=== PATIENT | male | born 1955 | race Caucasian/White ===

== ENCOUNTER → 2021-03-30 10:50 | Outpatient (BNVA) | payer OTHER, SELFPAY | PROVIDERS: Visit Provider Internal Medicine Critical Care Medicine | DX: Z01.812 Encounter for preprocedural laboratory examination (principal); Z20.822 Contact with and (suspected) exposure to COVID-19 | CPT/HCPCS: 87635 ==

== ENCOUNTER 2021-04-05 09:29 | Outpatient (CLI) | payer OTHER, MEDICARE, SELFPAY ==
--- NOTE | 2021-04-05 10:12 | PFTS_ITS ---
Date of Study:04/05/21 Date of Dictation: MECHANICS: Forced vital capacity (FVC) is normal. Forced expiratory volume in one second (FEV1) is reduced. FEV1/FVC is reduced. FLOW VOLUME LOOP: Reduced flow at all lung volumes with significant scooping. LUNG VOLUMES: Total lung capacity (TLC) is increased. Residual volume (RV) is increased. DIFFUSING CAPACITY FOR CARBON MONOXIDE: Moderately reduced. INTERPRETATION: The postbronchodilator spirometry is consistent with severe obstruction. There is a significant postbronchodilator response. Lung volumes are consistent with hyperinflation and air trapping. Gas exchange (DLCO) is moderately reduced. MTDD
--- NOTE | 2021-04-05 13:19 | PFTS_ITS ---
Date of Study:04/05/21 Date of Dictation: MECHANICS: Forced vital capacity (FVC) is . Forced expiratory volume in one second (FEV1) is . FEV1/FVC is . FLOW VOLUME LOOP: . LUNG VOLUMES: Total lung capacity (TLC) is . Residual volume (RV) is . DIFFUSING CAPACITY FOR CARBON MONOXIDE: . INTERPRETATION: The pulmonary function tests are . mechanics and lung volumes. Gas exchange (DLCO) is . MTDD
== END 2021-04-05 09:30 | disposition home or self-care (01) ==
LOC: RT 09:33
PROVIDERS: PCP Nurse Practitioner; Visit Provider Internal Medicine Critical Care Medicine
DX: J44.9 Chronic obstructive pulmonary disease, unspecified (principal)
CPT/HCPCS: 94060; 94726; 94729; J7611

== ENCOUNTER → 2021-07-20 08:04 | Outpatient (BNVA) | payer OTHER, SELFPAY | PROVIDERS: PCP Nurse Practitioner; Visit Provider Internal Medicine | DX: Z01.818 Encounter for other preprocedural examination (principal); Z20.822 Contact with and (suspected) exposure to COVID-19; J44.9 Chronic obstructive pulmonary disease, unspecified | CPT/HCPCS: 80048; 85025; 85610; 87635 ==

== ENCOUNTER 2021-07-26 12:28 | Observation (INO) | payer OTHER, SELFPAY ==
[2021-07-26] VITALS (17 sets, daily range): BP systolic 90–156; BP diastolic 45–88; PULSE 63–91; RESP 16–29; TEMP 37; O2SAT 93–96; BMI 31.7
--- NOTE | 2021-07-26 09:00 | XACV_ITS ---
Wt: 98 kg BSA: 2.21 m2 Gender: Male : 1955 Exam Type: Invasive Peripheral Vascular Procedure(s): Procedure Description: Peripheral Cath Diagnostic Procedure Procedure Description: Peripheral iliac stent placement Exam Priority: Routine Lower Extremity Diagnostic Findings Left common iliac artery: 100% occluded ostially Left external iliac artery: Patent Left internal iliac artery: Patent proximally, provides collaterals Left common femoral artery: Patent Left profunda femoral artery: Patent Left SFA: Patent Left popliteal artery: Patent TP segment patent Below the knee there is sluggish flow in the vessels but no stenosis noted. Right common iliac artery: Ostially occluded, Occluded common femoral and external iliac arteries. Blood supply through collaterals. However right lower extermity arteries not visualized. Lower Extremity Interventional Findings Procedure detail: Bilateral common femoral arteries were not palpable. We used ultrasound to guide access for left common femoral artery. 6 Kazakh sheath was inserted. Angiogram showed totally occluded ostial to distal common iliac artery. Access was also obtained in the right common femoral artery with ultrasound guidance however it was totally occluded and sheath was not advanced. We then attempted to revascularize left common femoral artery. Using seeker support catheter and Glidewire, we crossed the totally occluded segment of the left common iliac artery. This was followed by balloon angioplasty using 6.0 x 100 mm balloon. We then placed a 7.0 x 59 mm balloon expandable stent in the common iliac artery. A second 7.0 x 29 mm stent was placed in the distal common iliac to external iliac artery. Stents were expanded with 7.0 x 80 mm balloon. At this time final angiogram was performed that showed excellent stent expansion and no residual stenosis in the common iliac artery. Sheath was sutured in place for removal later.. Conclusions Totally occluded bilateral common iliac arteries. Right side has more extensive disease extending into femoral arteries. Bilateral lower extremities supplied by collateral blood flow. Successful revascularization of left common iliac artery with stents x2. Recommendations Transferred to [facility]. Aspirin and Plavix for 3 to 6 months. Outpatient abdominal CTA with runoff to assess right lower extremity vasculature for potential access for revascularization of iliac arteries/femoral arteries. Outpatient cardiology follow-up in 1 to 2 weeks. Access Site Site: Left Femoral artery Sheath Size: 6 Fr Hemost... Method: Suture Hemost... Success: Successful Procedure Details Findings Procedure Consent Obtained. Admit Source: Out Patient. Pre-Procedure Time Out. Identified patient by full name and date of as verbalized by the patient/guarantor. Does the consent match the physician's order: Yes. Accurate & Complete Informed Consent: Yes. Inpatient/Outpatient History & Physical on Chart: Yes. If H&P is completed, is and addenduem needed: Yes; If yes, is the addendum complete: N/A. Visualize and Verify Site with Patient/Guarantor: N/A. Relevant Radiology Images available: N/A. Pre-op teaching completed and patient verbalized understanding. The risks, benefits, and alternatives of sedation and/or procedure were discussed by physician. The patient agrees to continue. Procedure started. Correct patient, site and procedure confirmed by cath team. PERRLA. Strong, equal hand medical technicians bilaterally. Lungs clear x 5 lobes. IV Site on Arrival: 20 gauge in the right anticubital. Pre Procedural Pulses: bilateral dorsalis pedis was Doppled. Pre Procedural Pulses: bilateral posterior tibial was Doppled. Pre Procedural Pulses: bilateral radial was 3+. Oxygen started at 2liters/min via nasal canula. bilateral groins was prepped with chloroprep then draped in the usual sterile fashion. Physician notified. Baseline sample Acquired. HR: 93 BPM. Physician arrived. Physician scrubbed in. Lidocaine 1% infiltrated to the left groin. Arterial access obtained with micropuncture set. hand injection performed through the sheath. left leg runoff performed 10mL/sec for a total of 30mL. Side port of sheath attached to Normal Saline flush at KVO to maintain patency. Lidocaine 1% infiltrated to the right groin. Arterial access obtained with micropuncture set. microdialator inserted. handinjection performed through the microdialator. microdialator out. holding manual pressure at this time. Dr. Chin noified per Dr. Sabillon. no hematoma noted on right femoral sight. Dr. Chin scrubbing in for Dr. Sabillon. handinjection performed through the sheath. seeker and glidewire inserted. glidewire out. handinjection performed through the seeker. seeker and glidewire advaced to the aorta. handinjection performed. seeker is out. glidewire inserted. Inflation number : 1 A AB ARMADA 35 OTW [id number] was prepped and advanced across the Common Iliac, Left , then inflated to 10 MARCO A for 2:04 seconds. Balloon out. A 6FrFr UF catheter in over wire. handinjection performed. Side port of sheath attached to Normal Saline flush at KVO to maintain patency. Abdominal aortogram performed in AP @ 10 mL/sec for a total of 30 mL. glidewire inserted. Catheter out. Inflation Number : 1 A Omnilink -Lot Number#[id number] exp date: 11-11-2023 was prepped and advanced across the Ostial Common Iliac, Left. The stent was deployed at 10 MARCO A for 1:08 seconds. Inflation Number : 1 A Omnilink Elite 7.0x29mm -Lot Number#[id number] exp date: 12-12-2023 was prepped and advanced across the Ostial Internal Iliac, Left. The stent was deployed at 10 MARCO A for 1:00 seconds. Balloon out. Abdominal aortogram performed in AP @ 10 mL/sec for a total of 20 mL. A 6FrFr UF catheter in over wire. glidewire inserted. Inflation number : 2 A AB ARMADA 35 OTW [id number] was prepped and advanced across the Common Iliac, Left , then inflated to 10 MARCO A for 1:03 seconds. Balloon out. pigtail inserted. handinjection performed through the pigtail 10mL/sec for a total of 20mL. Catheter out. Sheath(s) sutured into position with 2-0 silk and sterile 4x4's and Op-site applied over the site. No oozing or signs and symptoms of hematoma noted. Post Procedure: Pulses reassessed and unchanged. PERRLA. Strong, equal hand medical technicians bilaterally. No VTE prophylaxis required. Post-op diagnosis: total occluded left common iliac\. PCI Indication: severe lifestyle clotification. Medication's Wasted: Heparin = 2000 units. Medication's Wasted: Other = versed 1 mg. Total IV fluids: 124 mL. Contrast type used: Visipaque 320 mgI/mL, 500 mL bottle. Contrast Material : Visipaque 171 ml. Complications: none. Estimated blood loss: 5mL-10mL. A Suture was successful obtaining hemostatsis at the Left Femoral artery insertion site. Responsiveness - Normal response to verbal stimuli; alert and oriented, PERRLA. Airway - Unaffected, no intervention required; spontaneous ventilation. Circulation: W/N/L, pulses unchanged. Nausea/Vomiting: N/A. Procedure completed. Patient transferred by bed to 1st floor. Vital chart was stopped. Procedure Medications Start: 10:33 AM Stop: 10:33 AM Medication: Versed Amount: 1 mg Route: I.V. Start: 10:33 AM Stop: 10:33 AM Medication: Fentanyl Amount: 50 mcg Route: I.V. Start: 11:15 AM Stop: 11:15 AM Medication: Versed Amount: 1 mg Route: I.V. Start: 11:15 AM Stop: 11:15 AM Medication: Fentanyl Amount: 25 mcg Route: I.V. Start: 11:32 AM Stop: 11:32 AM Medication: Versed Amount: 1 mg Route: I.V. Start: 11:48 AM Stop: 11:48 AM Medication: Versed Amount: 1 mg Route: I.V. Start: 11:49 AM Stop: 11:49 AM Medication: Fentanyl Amount: 25 mcg Route: I.V. Start: 12:13 PM Stop: 12:13 PM Medication: Aspirin Amount: 325 mg Route: P.O. Start: 12:13 PM Stop: 12:13 PM Medication: Plavix Amount: 600 mg Route: P.O. I, the attending physician, have reviewed and verified all procedure medications. Yes, all medications given per verbal order History/Risk Factors Hypertension: Yes Dyslipidemia: Yes Tobacco Use: Current/Recent(w/in 1 year) Report Signatures Finalized by Jose Armando Sabillon MD on 07/26/2021 05:20 PM
[2021-07-26] MEDS: diphenhydrAMINE 50 mg Capsule PO (09:54)
--- NOTE | 2021-07-26 10:26 | W.PM.OPSFHP ---
Same Day Surgery H&P Indication for Procedure/HPI DATE OF PROCEDURE: July 26, 2021 CHIEF COMPLAINT/INDICATIONFOR SURGICAL PROCEDURE: Lifestyle limiting claudication PREOP DIAGNOSIS: Lifestyle limiting claudication PLANNED PROCEDRUE: Operation Date: 07/26/21 10:00 Proposed Procedures p Peripheral Diagnostic(Bilateral) - Jose Armando Sabillon M.D Peripheral intervention 65 year old with PMH of hypertension, hyperlipidemia, BENJA and tobacco abuse has been having significant bilateral lower extremity discomfort, mostly at exertion but also occasionally at rest. LISA were performed that showed a value of 0.51 on the right and 0.58 on the left. It limits his every day activiites. Plan is for peripheral angiogram from left femoral access site. ROS CONSTITUTIONAL: No fever chills weight loss or gain or night sweats. [] HEENT: Normocephalic, atraumatic.[] RESPIRATORY: No cough, sputum, hemoptysis or wheezing.[] CARDIOVASCULAR: No shortness of breath, chest pain, PND, orthopnea, lower extremity edema, presyncope or syncope. [] GI: no nausea vomiting diarrhea. [] EDUCATIONAL MANAGER: No numbness, tingling, weakness or loss of function in any part of the body. [] MUSCULOSKELETAL: Has bilateral lower extremity claudication Medications/Allergies* Home Medications Medication Instructions Recorded Confirmed Type albuterol sulfate 90 mcg/actuation 2 puff INHALATION Q6H PRN 01/11/21 07/26/21 History aerosol inhaler amlodipine 10 mg tablet 10 mg PO DAILY 01/11/21 07/26/21 History vitamin B complex 1 tab PO DAILY 05/04/21 07/25/21 History ascorbic acid (vitamin C) [Vitamin 1,000 mg PO DAILY 07/25/21 07/25/21 History C] garlic 1,000 mg PO DAILY 07/25/21 07/25/21 History glucosamine-chondroitin [Osteo 2 tab PO DAILY 07/25/21 07/26/21 History Bi-Flex] magnesium 100 mg PO DAILY 07/25/21 07/25/21 History omega-3 fatty acids-vitamin E 1,000 cap PO DAILY 07/25/21 07/25/21 History [Fish Oil] zinc 30 mg PO DAILY 07/25/21 07/25/21 History Allergies/Adverse Reactions Allergy/AdvReac Type Severity Reaction Status Date / Time No Known Allergies Allergy Verified 07/25/21 12:44 Current Medications: Generic Name Dose Route Start Last Admin Trade Name Festus PRN Reason Stop Dose Admin Sodium Chloride 1,000 mls @ 50 mls/hr 07/26/21 09:00 07/26/21 09:54 Sodium Chloride 0.9% IV 07/27/21 04:59 Not Given .Q20H ONE Pertinent History/Comorbid Conditions* Medical History (Updated 06/22/21 @ 19:56 by Jose Armando Sabillon M.D) Chronic obstructive pulmonary disease GERD (gastroesophageal reflux disease) HTN (hypertension) Hyperlipidemia BENJA (obstructive sleep apnea) Tobacco use Unspecified hearing loss Surgical History (Updated 02/02/21 @ 10:57 by Skye Aponte MD) H/O vasectomy History of hip surgery Social History Smoking and tobacco status: current every day smoker cigarettes Packs smoked per day: 1 Years cigarettes smoked: 50 Quit status (tobacco): considering quitting Second hand smoke exposure: Yes Smoking risk assessment/counseling performed?: Yes Alcohol intake: current Counseling given: No Counseling given: No Lives independently: Yes Household members: spouse Marital status: service: Yes Current occupational status: retired History of recent travel: No Current gender identity: Male Pertinent Exam Findings alert, oriented x 3, clear to auscultation bilaterally, regular rate & rhythm and procedure specific exam findings (Bilateral lower extremities have diminished pulses) Conscious Sedation Assessment PATIENT ASSESSED PRIOR TO SEDATION, WITH NO CHANGE NOTED: Yes AIRWAY EVAL/ANESTHESIA PLAN: normal airway, ASA III, Monitored Anesthesia, Local Anesthesia, Risks, benefits & alternatives of sedation and/or procedure discussed and Patient agrees to continue as planned Recommendations Surgery/Procedure today (Peripheral angiogram with possible percutaneous peripheral intervention) Coding Level of Care Code Acute Asp Net C Developer for Kathleen Dang
[2021-07-26 16:08] LABS: Partial Thromboplastin Time 36.8 SECONDS (23.9-36.7)
[2021-07-27 02:46] LABS: Basophils # 0.1 10^3/uL (0.0-0.1); Basophils % 0.6 %; Eosinophils # 0.2 10^3/uL (0.0-0.8); Eosinophils % 1.8 %; Hematocrit 43.9 % (42.0-52.0); Hemoglobin 14.3 g/dL (11.7-16.6); Lymphocytes # 2.8 10^3/uL (0.8-4.8); Lymphocytes % 29.7 %; Mean Corpuscular HGB Conc 32.6 g/dL (30.0-36.0); Mean Corpuscular Hemoglobin 30.2 pg (28.0-34.0); Mean Corpuscular Volume 92.8 fl (80-94); Mean Platelet Volume 9.8 fL (7.4-10.4); Monocytes % 11.2 %; Neutrophils # 5.21 10^3/uL (1.8-7.7); Neutrophils % 56.4 %; Nucleated Red Blood Cells % 0 %; Platelet Count 172 10^3/cmm (130-400); Red Blood Count 4.73 10^6/uL (4.1-5.3); Red Cell Distribution Width 13.2 % (12.1-15.1); White Blood Count 9.3 10^3/uL (4.0-10.0)
[2021-07-27 03:14] LABS: Anion Gap 12.2 (5-19); Blood Urea Nitrogen 14 mg/dL (8-23); Calcium 8.1 mg/dL (8.5-10.5); Carbon Dioxide 24 mmol/L (22-29); Chloride 108 mmol/L (98-107); Glomerular Filtration Rate 134.8 mL/min (90-130); Glucose 111 mg/dL (65-115); Osmolality Calculated 291 mOsm/kg (285-295); Potassium 4.2 mmol/L (3.5-5.1); Sodium 140 mmol/L (136-145)
[2021-07-27 05:06] VITALS: PULSE 62
--- NOTE | 2021-07-27 08:49 | P.SS_ITS ---
Short Stay Summary Providers Date of Admit/Discharge: 07/26/21 Attending Provider: Jose Armando Sabillon M.D Primary Care Provider: SARAH Sawyer Chief Complaint: [id number] i73.9 HPI History of Present Illness 65 year old with PMH of hypertension, hyperlipidemia, BENJA and tobacco abuse has been having significant bilateral lower extremity discomfort, mostly at exertion but also occasionally at rest. LISA were performed that showed a value of 0.51 on the right and 0.58 on the left. It limits his every day activities. Patient was scheduled to undergo peripheral angiogram with possible intervention. Review of Systems Const: Denies: fever(s), chills, fatigue or night sweats Eyes: Denies: change in vision or blurry vision ENMT: Denies: throat pain Card: Reports: dyspnea on exertion; Denies: chest pain, palpitations, irregular heart rhythm, edema, swelling of feet/ankles (occ.), lightheadedness, syncope, pre-syncope, orthopnea, leg pain with exertion or acrocyanosis Resp: Reports: productive cough; Denies: non-productive cough GI: Denies: abdominal pain, nausea, vomiting or diarrhea : Denies: flank pain or difficulty urinating Musc: Reports: muscle cramps (legs); Denies: neck pain, back pain or joint pain Skin/Breast: Denies: rash or pruritus Neuro: Denies: headache(s), numbness in extremities or weakness in extremities Psych: Denies: anxiety, depression, suicidal ideation or homicidal ideation Endo: Denies: polyuria, polydipsia or tired all the time Darius/Lymph: Reports: easy bruising and easy bleeding All/Imm: Denies: seasonal rhinorrhea Home Meds/Allergies Home Medications and Allergies Home Medications Medication Instructions Recorded Confirmed Type albuterol sulfate 90 mcg/actuation 2 puff INHALATION Q6H PRN 01/11/21 07/26/21 History aerosol inhaler amlodipine 10 mg tablet 10 mg PO DAILY 01/11/21 07/26/21 History vitamin B complex 1 tab PO DAILY 05/04/21 07/25/21 History ascorbic acid (vitamin C) [Vitamin 1,000 mg PO DAILY 07/25/21 07/25/21 History C] garlic 1,000 mg PO DAILY 07/25/21 07/25/21 History glucosamine-chondroitin [Osteo 2 tab PO DAILY 07/25/21 07/26/21 History Bi-Flex] magnesium 100 mg PO DAILY 07/25/21 07/25/21 History omega-3 fatty acids-vitamin E 1,000 cap PO DAILY 07/25/21 07/25/21 History zinc 30 mg PO DAILY 07/25/21 07/25/21 History Allergies Allergy/AdvReac Type Severity Reaction Status Date / Time No Known Allergies Allergy Verified 07/25/21 12:44 PFSH Acute PFSH: Medical History Chronic obstructive pulmonary disease GERD (gastroesophageal reflux disease) HTN (hypertension) Hyperlipidemia BENJA (obstructive sleep apnea) Tobacco use Unspecified hearing loss Surgical History H/O vasectomy History of hip surgery Social History Smoking and tobacco status: current every day smoker cigarettes Packs smoked per day: 1 Years cigarettes smoked: 50 Quit status (tobacco): considering quitting Second hand smoke exposure: Yes Smoking risk assessment/counseling performed?: Yes Alcohol intake: current Counseling given: No Counseling given: No Lives independently: Yes Household members: spouse Marital status: service: Yes Current occupational status: retired History of recent travel: No Current gender identity: Male Vitals/I&O/Wt Last Vital Signs Temp 98.6 F 07/26/21 09:33 Pulse 62 07/27/21 05:06 Resp 19 H 07/26/21 16:00 BP 125/65 07/26/21 16:00 Pulse Ox 94 07/26/21 16:00 07/26/21 07/27/21 07/27/21 22:59 06:59 14:59 Intake Total 390 / 390 300 / 690 Output Total 820 / 820 375 / 1195 Balance -430 / -430 -75 / -505 Weight last 48 hrs Weight 215 lb Physical Exam Narrative: EXAM NARRATIVE: GENERAL: Patient is alert, awake and oriented x3. [] NECK: No jugular vein distension. [] HEENT: No cyanosis. No icterus. No pallor. [] HEART: Regular S1 and S2. No murmur, rub or gallop. [] LUNGS: Clear to auscultate bilaterally. [] ABDOMEN: Soft, nontender and nondistended. Positive bowel sounds. No guarding, rebound or tenderness. [] CENTRAL NERVOUS SYSTEM: Grossly nonfocal. [] EXTREMITIES: Lower extremities with 1+ edema bilaterally. Pulses palpable in left lower extremity. Right lower extremity pulses are very weak. Hospital Course Hospital Course 65 year old with PMH of hypertension, hyperlipidemia, BENJA and tobacco abuse has been having significant bilateral lower extremity discomfort, mostly at exertion but also occasionally at rest. LISA were performed that showed a value of 0.51 on the right and 0.58 on the left. It limits his every day activities. Patient was scheduled to undergo peripheral angiogram with possible intervention. Peripheral angiogram from left femoral access showed totally occluded left common iliac artery. He underwent successful revascularization with 2 stents. Patient was started on aspirin and Plavix. His right lower extremity has totally occluded vessels from ostial iliac downstream and is supplied by collaterals. Plan is to obtain a CTA with runoff to assess possible access site for revascularization of right lower extremity. 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 request for service Routin e Exams 07/26/21 09:00 Completed Discharge Plan Discharge Patient Disposition: Home Condition: Stable Prescriptions: New aspirin 81 mg tablet,chewable 81 mg PO DAILY Qty: 30 RF: 2 Plavix 75 mg tablet 75 mg PO DAILY Qty: 60 RF: 2 Continued albuterol sulfate 90 mcg/actuation HFA aerosol inhaler 2 puff inhalation Q6H PRN (Reason: Shortness of breath) RF: 0 amlodipine 10 mg tablet 10 mg PO DAILY RF: 0 vitamin B complex [B Complex-Vitamin B12] Tablet 1 tab PO DAILY RF: 0 Stiolto Respimat 2.5-2.5 mcg/actuation mist 2 puff inhalation DAILY 30 Days Qty: 4 RF: 3 zinc 15 mg Tablet 30 mg PO DAILY RF: 0 garlic 1,000 mg Capsule 1,000 mg PO DAILY RF: 0 ascorbic acid (vitamin C) [Vitamin C] 1,000 mg Tablet 1,000 mg PO DAILY RF: 0 omega-3 fatty acids-vitamin E 1,000 mg Capsule 1,000 cap PO DAILY RF: 0 magnesium 100 mg Capsule 100 mg PO DAILY RF: 0 glucosamine-chondroitin [Osteo Bi-Flex] 250-200 mg Tablet 2 tab PO DAILY RF: 0 Discharge Orders: Discharge Order (Routine); Ordered 07/27/21 Ordered By: Jose Armando Sabillon Referrals: Jose Armando Sabillon M.D [Physician] - 1 month Cyndy Garcia FNP [Nurse Practitioner] - 7-10 days Discharge Diet: Cardiac Discharge Activity: Increase activity as tolerated Patient Instructions: Peripheral Vascular Stent Placement (DC), Peripheral Vascular Angioplasty (DC), Opioid Safety Attestations Medical Necessity Statement*: Care not expected to cross 2 midnights. Time Spent in Patient Care*: less than 30 min Quality Metrics Clinical Quality Measures: During this hospital stay, did patient experience: None Coding Level of Care Code Acute Lead Javascript Developer for Kathleen Dang
[2021-07-27] MEDS: aspirin 81 mg EC Tablet PO (09:38)
[2021-07-27] MEDS: clopidogrel 75 mg Tablet PO (09:38)
[2021-07-27 10:18] VITALS: PULSE 62
--- NOTE | 2021-07-27 10:26 | PC.CHAP ---
Pastoral Care Encounter/Spiritual Assessment Type of Contact [] Declined tassel clipper visit [] Patient/Family/Request visit [] Outpatient visit [] Follow-up visit [] Physician referral [] Code/Alert [xx] Routine visit [] Staff referral [] Actively dying [] Patient sleeping [] Family support [] [] Out of room [] Palliative care [] [] Receiving care in room [] Pre-surgical visit [] Trauma [] Long length of stay [] ICU visit [] Other: Relational/Emotional Strength [xx] Patient feels connected with others/family/visitors/staff [] Distress [] Loneliness/isolation [] Abandonment Spirituality of Patient [xx] Person of Melissa [xx] Attends Yazdanism of their Melissa [xx] Believes in Prayer [] Reads Bible or Advent materials [] There are Spiritual issues to be addressed Detail Assembler Interventions [xx] Prayer [xx] Active listening [xx] Non-anxious presence [] Spiritual/emotional support [] Crisis/trauma care [] Spiritual counseling [] Bereavement support [] Provided bereavement packet [] Provided Bible/devotional materials [] Provided toy/stuffed animal, coloring book to patient or family member [] Provided Communion [] Anointing/[place] [] Salvation [xx] Completed spiritual assessment [] Other: Impact on Illness or Injury [] Angry [] Fearful [] Anxious [] Often cries [] Exhaustion [] Unable to work [] Unable to attend temple [] Unable to walk/stand [] Unable to read [] Unable to drive [] Unable to eat/drink [] Unable to sleep [] Unable to be with family [] Patient intubated [] Other: Summary Patient's was present. Patient being discharged. Time spent with patient 3 minutes
--- NOTE | 2021-07-27 10:59 | PC.NURSE ---
discharge instructions given and explained.pt and spouse verb understanding of instructions.prescriptions phoned to [facility].discharged via w/c to exit at 1045.spouse to drive pt home
== END 2021-07-27 10:45 | disposition home or self-care (01) ==
LOC: CSU 12:30
PROVIDERS: Admitting Provider Internal Medicine; PCP Nurse Practitioner; Visit Provider Internal Medicine
DX: I70.213 Atherosclerosis of native arteries of extremities with intermittent claudication, bilateral legs (principal); I10 Essential (primary) hypertension; E78.5 Hyperlipidemia, unspecified; F17.210 Nicotine dependence, cigarettes, uncomplicated; G47.33 Obstructive sleep apnea (adult) (pediatric); J44.9 Chronic obstructive pulmonary disease, unspecified; K21.9 Gastro-esophageal reflux disease without esophagitis
CPT/HCPCS: 36415; 37221; 75625; 75710; 80048; 85025; 85730; C1725; C1769; C1876; C1887; C1894; G0378; J1644; J2250; J3010; J3490; J7030; Q0163; Q9967

== ENCOUNTER 2021-08-07 11:07 | Outpatient (CLI) | payer OTHER, SELFPAY ==
[2021-08-07] MEDS: iohexol 350 mg/mL 100 mL Btl IV (11:22)
--- NOTE | 2021-08-07 11:30 | CT_ITS ---
WS: [id number] CTA ABDOMINAL AORTA WITH RUNOFF TECHNIQUE: Contrast enhanced CTA of the abdominal aorta with bilateral lower extremity runoff. Multip lanar reformatted images were obtained. MIP reformats were also reviewed. CLINICAL INFORMATION: I73.9 - Peripheral vascular disease, unspecified COMPARISON: None. DLP: 1921.[address] scans at [facility] use at least one of these dose optimization techniques: automated e xposure control; mA and/or kV adjustment per patient size (includes targeted exams where dose is matc hed to clinical indication); or iterative reconstruction. FINDINGS: Normal caliber abdominal aorta. Celiac and SMA are patent with mild calcification at the or igin. Proximal renal arteries are patent with mild calcification at the ostia. Stenosis in the distal abdominal aorta approximately 30 percent with eccentric narrowing and peripheral mural thrombus. Suzette g bases are well aerated. Small hepatic cyst in the dome the liver. Normal gallbladder. Normal portal vein and splenic vein. Fatty atrophy of the pancreas. Normal spleen. Normal GE junction. Adrenal glands are normal. Normal r enal parenchymal enhancement. No hydronephrosis. Right MARY degrades images in the pelvis. Mild prosta te enlargement. Sigmoid diverticulosis. No evidence of acute diverticulitis. Normal appendix in the r ight lower quadrant. Tiny fat-containing umbilical hernia. Shotty periaortic and retroperitoneal lymp h nodes. RIGHT: Right common iliac artery is occluded at the origin. External iliac artery is occluded. Collat eral flow in the internal iliac artery. External iliac artery is occluded to the inguinal ligament. C ommon femoral artery reconstitutes via collaterals. Mild calcified atheromatous disease common femora l artery which remains patent. Superficial femoral artery is patent with moderate calcified atheromat ous disease. No flow-limiting stenosis. Moderate stenosis in the proximal popliteal artery at the add uctor hiatus which remains patent to the trifurcation with three-vessel runoff to the ankle. Venous c ontamination lower leg. LEFT: Left common iliac artery stent appears patent. Left external iliac artery remains patent. Inter nal iliac artery is occluded just distal to the origin and reconstitutes distally. Common femoral art diana and superficial femoral arteries are patent. Deep femoral artery is patent. Superficial femoral a rtery is patent to the adductor hiatus. Popliteal artery is patent. Normal 3 vessel runoff to the ank le. CT/CT angio abd aorta runof [id number] IMPRESSION: 1. RIGHT: Right common iliac artery is occluded at the origin. External iliac artery remains occluded to the inguinal ligament. Common femoral artery reconst itutes via collaterals. Common femoral and superficial femoral arteries are pat ent. Moderate stenosis in the popliteal artery at the adductor hiatus which rem ains patent. Three-vessel runoff to the right lower extremity with venous conta mination. 2. LEFT: Left common iliac artery stent is patent. Left internal iliac artery is occluded just distal to the origin and reconstitutes distally. Otherwise no flow-limiting stenosis in the left lower extremity. Three-vessel runoff to the ankle. 3. Celiac and SMA are patent. Proximal renal arteries are patent. 4. Mild stenosis in the distal abdominal aorta measuring approximately 30% wit h peripheral mural thrombus. No aneurysm. 5. Nonvascular findings as described above.
== END 2021-08-07 11:08 | disposition home or self-care (01) ==
LOC: RAD 11:09
PROVIDERS: PCP Nurse Practitioner; Visit Provider Internal Medicine
DX: I73.9 Peripheral vascular disease, unspecified (principal); I74.5 Embolism and thrombosis of iliac artery; I35.0 Nonrheumatic aortic (valve) stenosis
CPT/HCPCS: 75635; 80048

== ENCOUNTER → 2021-09-14 09:07 | Outpatient (BNVA) | payer OTHER, SELFPAY | PROVIDERS: PCP Nurse Practitioner; Visit Provider Internal Medicine | DX: Z01.812 Encounter for preprocedural laboratory examination (principal); I10 Essential (primary) hypertension; I73.9 Peripheral vascular disease, unspecified | CPT/HCPCS: 80048; 85025; 85610; 87635 ==

== ENCOUNTER 2021-09-18 05:50 | Outpatient (CLI) | payer OTHER, SELFPAY ==
[2021-09-18] VITALS (16 sets, daily range): BP systolic 103–145; BP diastolic 48–71; PULSE 61–78; RESP 16–23; TEMP 36.4; O2SAT 94–97; BMI 32.0
--- NOTE | 2021-09-18 07:30 | XACV_ITS ---
Ht: 175 cm Wt: 98 kg BSA: 2.22 m2 Any Known Allergies: No known allergies Gender: Male : 1955 Exam Type: Invasive Peripheral Vascular Procedure(s): Procedure Description: Peripheral Cath Diagnostic Procedure Exam Priority: Routine Lower Extremity Diagnostic Findings Right common iliac artery:Occluded Right external iliac artery: Occluded Right common femoral artery:Patent in the distal segment Right profunda femoris artery: Patent Right SFA: Patent Right popliteal artery: Patent Right TP segment: Patent Right anterior tibial artery: Patent Right posterior tibial artery: Patent Right peroneal artery:Patent. INDICATION: Severe lifestyle limiting claudication. Lower Extremity Interventional Findings Procedure details: We initially attempted to obtain access in the right posterior tibial artery however had dissection of the vessel. We then switched to anterior tibial artery access. Using Glidewire and seeker support catheter we went into right external iliac artery. Multiple attempts were made to cross external iliac artery that was totally occluded however wire was going into subintimal space. Totally occluded segment could not be revascularized. At this time we stopped further attempts and decided on medical therapy. Sheath was removed and TR band was placed. 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 Conclusions Occluded right external and common iliac arteries. Unsuccessful attempt at revascularization. Recommendations We will try medical therapy with addition of cilostazol. If symptoms do not improve, patient will be referred for bypass surgery. Access Site Site: Right Pedal Sheath Size: 4 Fr Hemost... Success: Unsuccessful Site: Right Pedal Sheath Size: 4 Fr Hemost... Success: Unsuccessful Procedure Details Findings Procedure Consent Obtained. Pre-Procedure Time Out. Identified patient by full name and date of as verbalized by the patient/guarantor. Does the consent match the physician's order: Yes. Accurate & Complete Informed Consent: Yes. Inpatient/Outpatient History & Physical on Chart: Yes. If H&P is completed, is and addenduem needed: Yes; If yes, is the addendum complete: Yes. Visualize and Verify Site with Patient/Guarantor: N/A. Relevant Radiology Images available: Yes. Pre-op teaching completed and patient verbalized understanding. The risks, benefits, and alternatives of sedation and/or procedure were discussed by physician. The patient agrees to continue. Procedure started. Physician arrived. PERRLA. Strong, equal hand classer bilaterally. Lungs clear x 5 lobes. IV Site on Arrival: 18 gauge in the left anticubital. IV Fluids: 0.9% NaCl at KVO. 0 mL infused prior to laborer hoisting. Pre Procedural Pulses: right dorsalis pedis was Absent. Pre Procedural Pulses: left dorsalis pedis was 1+. Pre Procedural Pulses: right posterior tibial was Absent. Pre Procedural Pulses: left posterior tibial was 2+. Pre Procedural Pulses: bilateral radial was 3+. Oxygen started at 2liters/min via nasal canula. bilateral groins was prepped with chloroprep then draped in the usual sterile fashion. right PT was prepped with chloroprep then draped in the usual sterile fashion. Baseline sample Acquired. HR: 82 BPM. Physician scrubbed in. Immediate Pre-Procedure Time Out. Correct Patient: Yes; Correct Procedure: Yes; Correct Site: Yes; Correct Patient Position: Yes; Correct Supplies: Yes; Dried Flammable Prep: Yes; Blood Products Available: N/A;. Physician scrubbed in. Time out performed with cath team. Lidocaine 1% infiltrated to the right PT. Ultrasound used to obtain access. Arterial access obtained with micropuncture set. wire and needle out. Arterial access obtained with micropuncture set. contrast hand injected through the catheter. Sheath removed, manual compression. Lidocaine 1% infiltrated to the right groin. Arterial access obtained with micropuncture set. wire and needle removed. Lidocaine 1% infiltrated to the right AT. Arterial access obtained. contrast hand injected through the sheath. Sheath upsized to a 6 Fr. glidesheath. glidewire inserted through the catheter and advanced to the iliac. seeker inserted OTW. wire out and contrast hand injected through the catheter. catheter pulled back and contrast hand injected x 5. catheter out. TR band placed. Hemostasis obtained. Vital chart was stopped. Post Procedure: Pulses reassessed and unchanged. PERRLA. Strong, equal hand classer bilaterally. No VTE prophylaxis required. Medication's Wasted: Lidocaine 1% = 10 mL. Medication's Wasted: Heparin = 1000 units. Total IV fluids: 86.4 mL. Contrast type used: Visipaque 320 mgI/mL, 500 mL bottle. Post-op diagnosis: PAD. Complications: None. Estimated blood loss: 5mL-10mL. Responsiveness - Normal response to verbal stimuli; alert and oriented, PERRLA. Airway - Unaffected, no intervention required; spontaneous ventilation. Circulation: W/N/L, pulses unchanged. Nausea/Vomiting: No. Procedure completed. Patient transferred by bed to 1st floor. Procedure Medications Start: 8:02 AM Stop: 8:02 AM Medication: Versed Amount: 1 mg Route: I.V. Start: 8:02 AM Stop: 8:02 AM Medication: Fentanyl Amount: 50 mcg Route: I.V. Start: 8:10 AM Stop: 8:10 AM Medication: Benadryl Amount: 50 mg Route: I.V. Start: 8:11 AM Stop: 8:11 AM Medication: Versed Amount: 1 mg Route: I.V. Start: 8:11 AM Stop: 8:11 AM Medication: Fentanyl Amount: 50 mcg Route: I.V. Start: 8:45 AM Stop: 8:45 AM Medication: Versed Amount: 1 mg Route: I.V. Start: 8:45 AM Stop: 8:45 AM Medication: Fentanyl Amount: 50 mcg Route: I.V. Start: 8:50 AM Stop: 8:50 AM Medication: Fentanyl Amount: 50 mcg Route: I.V. Start: 9:01 AM Stop: 9:01 AM Medication: Versed Amount: 1 mg Route: I.V. Start: 9:01 AM Stop: 9:01 AM Medication: Fentanyl Amount: 50 mcg Route: I.V. I, the attending physician, have reviewed and verified all procedure medications. Yes, all medications given per verbal order History/Risk Factors Hypertension: Yes Dyslipidemia: Yes Peripheral Arterial Disease (PAD): Yes Obesity: No Renal Disease: No Tobacco Use: Current/Recent(w/in 1 year) Prior Interventions PCI: No CABG: No Valve Surgery: No Report Signatures Finalized by Jose Armando Sabillon MD on 09/30/2021 08:20 PM
--- NOTE | 2021-09-18 08:04 | W.PM.OPSFHP ---
Same Day Surgery H&P Indication for Procedure/HPI DATE OF PROCEDURE: September 18, 2021 CHIEF COMPLAINT/INDICATIONFOR SURGICAL PROCEDURE: Lifestyle limiting claudication PREOP DIAGNOSIS: Lifestyle limiting claudication PLANNED PROCEDURE: Operation Date: 09/18/21 08:30 Proposed Procedures p Peripheral Diagnostic(Bilateral) - Jose Armando Sabillon M.D Peripheral angiogram 65 year old with PMH of hypertension, hyperlipidemia, BENJA and tobacco abuse has been having significant bilateral lower extremity discomfort, mostly at exertion but also occasionally at rest. LISA were performed that showed a value of 0.51 on the right and 0.58 on the left. It limits his every day activites. He underwent successful revascularization of left iliac artery. Today plan for a staged procedure of the right lower extremity ROS CONSTITUTIONAL: No fever chills weight loss or gain or night sweats. [] HEENT: Normocephalic, atraumatic.[] RESPIRATORY: No cough, sputum, hemoptysis or wheezing.[] CARDIOVASCULAR: No shortness of breath, chest pain, PND, orthopnea, lower extremity edema, presyncope or syncope. [] GI: no nausea vomiting diarrhea. [] BOILER ERECTOR: No numbness, tingling, weakness or loss of function in any part of the body. [] MUSCULOSKELETAL: Right lower extremity pain Medications/Allergies* Home Medications Medication Instructions Recorded Confirmed Type albuterol sulfate 90 mcg/actuation 2 puff INHALATION Q6H PRN 01/11/21 09/18/21 History aerosol inhaler amlodipine 10 mg tablet 10 mg PO DAILY 01/11/21 09/18/21 History vitamin B complex (B 1 tab PO DAILY 05/04/21 09/18/21 History Complex-Vitamin B12) ascorbic acid (vitamin C) 1,000 mg 1,000 mg PO DAILY 07/25/21 09/18/21 History tablet (Vitamin C) garlic 1,000 mg capsule 1,000 mg PO DAILY 07/25/21 09/18/21 History glucosamine-chondroitin 250 mg-200 2 tab PO DAILY 07/25/21 09/18/21 History mg tablet (Osteo Bi-Flex) magnesium 100 mg capsule 100 mg PO DAILY 07/25/21 09/18/21 History omega-3 fatty acids-vitamin E 1,000 cap PO DAILY 07/25/21 09/18/21 History 1,000 mg capsule zinc 15 mg tablet 30 mg PO DAILY 07/25/21 09/18/21 History Allergies/Adverse Reactions Allergy/AdvReac Type Severity Reaction Status Date / Time No Known Allergies Allergy Verified 09/17/21 09:10 Pertinent History/Comorbid Conditions* Medical History (Updated 08/07/21 @ 10:32 by SARAH Shipley) Chronic obstructive pulmonary disease GERD (gastroesophageal reflux disease) HTN (hypertension) Hyperlipidemia BENJA (obstructive sleep apnea) Peripheral arterial disease Tobacco use Unspecified hearing loss Surgical History (Updated 02/02/21 @ 10:57 by Skye Aponte MD) H/O vasectomy History of hip surgery Social History Smoking and tobacco status: current every day smoker cigarettes Packs smoked per day: 1 Years cigarettes smoked: 50 Quit status (tobacco): considering quitting Second hand smoke exposure: Yes Smoking risk assessment/counseling performed?: Yes Alcohol intake: current Counseling given: No Counseling given: No Lives independently: Yes Household members: spouse Marital status: service: Yes Current occupational status: retired History of recent travel: No Current gender identity: Male Pertinent Exam Findings alert, oriented x 3, clear to auscultation bilaterally and regular rate & rhythm Conscious Sedation Assessment PATIENT ASSESSED PRIOR TO SEDATION, WITH NO CHANGE NOTED: Yes AIRWAY EVAL/ANESTHESIA PLAN: normal airway, ASA III, Monitored Anesthesia, Local Anesthesia, Risks, benefits & alternatives of sedation and/or procedure discussed and Patient agrees to continue as planned Recommendations Surgery/Procedure today (Peripheral angiogram with intervention) Coding Level of Care Code Acute Talent Development Manager for Kathleen Dang
--- NOTE | 2021-09-18 10:18 | PC.NURSE ---
Patient is resting with spouse at bedside.
--- NOTE | 2021-09-18 10:52 | PC.NURSE ---
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 Removed TR band to right ankle over insertion site to right anterior tibia per Dr. Sabillon's orders. Held pressure 10 min. Cleaned site with soap and water. No Drainage or hematoma noted. Patient tolerated well. Vitals Stable. Will continue to monitor.
--- NOTE | 2021-09-18 11:31 | PC.NURSE ---
heart rate: 70 oxygen: 97 NC 2L Respirations: 20 Blood Pressure: 116/67
--- NOTE | 2021-09-18 13:26 | PC.NURSE ---
Patient is resting with spouse at bedside.
--- NOTE | 2021-09-18 14:33 | PC.NURSE ---
Patient is sitting on chair/walker with souse at bedside, no needs at this time.
--- NOTE | 2021-09-18 15:08 | PC.NURSE ---
Discharge Note Patient discharged to home via private vehicle accompanied by spouse. All lines removed. No drainage or hematoma noted to cath insertion site to right ankle. Discharge instructions reviewed with patient and/or financial representative. Patient and spouse verbalized understanding of all teaching. Mobile pharmacy medications and/or prescriptions provided. Belongings/home medications returned.
== END 2021-09-18 14:55 | disposition home or self-care (01) ==
LOC: CCL 05:50 → CSU 08:06
PROVIDERS: PCP Nurse Practitioner; Visit Provider Internal Medicine
DX: I70.213 Atherosclerosis of native arteries of extremities with intermittent claudication, bilateral legs (principal); I10 Essential (primary) hypertension; E78.5 Hyperlipidemia, unspecified; F17.210 Nicotine dependence, cigarettes, uncomplicated; G47.33 Obstructive sleep apnea (adult) (pediatric); K21.9 Gastro-esophageal reflux disease without esophagitis
CPT/HCPCS: 36415; 85347; 93454; 93571; C1725; C1769; C1874; C1887; C1894; C9600; C9601; J1200; J1644; J2250; J3010; J7030; Q9967

== ENCOUNTER → 2021-09-25 09:26 | Outpatient (BNVA) | payer OTHER, SELFPAY | PROVIDERS: PCP Nurse Practitioner; Visit Provider Nurse Practitioner Family | DX: I73.9 Peripheral vascular disease, unspecified (principal); I10 Essential (primary) hypertension; F17.210 Nicotine dependence, cigarettes, uncomplicated | CPT/HCPCS: 80048; 99214 ==

== ENCOUNTER → 2021-11-07 15:02 | Outpatient (BNVA) | payer OTHER, SELFPAY | PROVIDERS: PCP Nurse Practitioner; Visit Provider Internal Medicine | DX: I73.9 Peripheral vascular disease, unspecified (principal); I11.0 Hypertensive heart disease with heart failure; F17.210 Nicotine dependence, cigarettes, uncomplicated | CPT/HCPCS: 99214 ==

== ENCOUNTER → 2022-05-01 08:27 | Outpatient (BNVA) | payer OTHER, SELFPAY | PROVIDERS: PCP Nurse Practitioner; Visit Provider Nurse Practitioner Family | DX: I73.9 Peripheral vascular disease, unspecified (principal); I10 Essential (primary) hypertension; F17.210 Nicotine dependence, cigarettes, uncomplicated | CPT/HCPCS: 99214 ==

== ENCOUNTER → 2022-10-29 12:27 | Outpatient (BNVA) | payer OTHER, SELFPAY | PROVIDERS: PCP Nurse Practitioner; Visit Provider Internal Medicine | DX: I73.9 Peripheral vascular disease, unspecified (principal); J44.9 Chronic obstructive pulmonary disease, unspecified; Z72.0 Tobacco use; G47.33 Obstructive sleep apnea (adult) (pediatric); I10 Essential (primary) hypertension; Z79.82 Long term (current) use of aspirin | CPT/HCPCS: 99214 ==

== ENCOUNTER → 2022-10-30 13:16 | Outpatient (BNVA) | payer OTHER, SELFPAY | PROVIDERS: PCP Nurse Practitioner; Referring Provider Nurse Practitioner; Visit Provider Dermatology | DX: L72.0 Epidermal cyst (principal); L81.4 Other melanin hyperpigmentation; L82.1 Other seborrheic keratosis; L73.8 Other specified follicular disorders; L57.8 Other skin changes due to chronic exposure to nonionizing radiation | CPT/HCPCS: 10060; 99203 ==

== ENCOUNTER → 2023-01-16 10:30 | Outpatient (BNVA) | payer OTHER, SELFPAY | PROVIDERS: PCP Nurse Practitioner; Visit Provider Internal Medicine Pulmonary Disease | DX: J44.9 Chronic obstructive pulmonary disease, unspecified (principal); R06.02 Shortness of breath; R91.1 Solitary pulmonary nodule; G47.33 Obstructive sleep apnea (adult) (pediatric); F17.210 Nicotine dependence, cigarettes, uncomplicated; I73.9 Peripheral vascular disease, unspecified | CPT/HCPCS: 82785; 85025; 86003; 99214 ==

== ENCOUNTER 2023-02-05 08:34 | Outpatient (CLI) | payer OTHER, SELFPAY ==
[2023-02-05] MEDS: albuterol 2.5 mg/3 mL Neb INHALATION (08:46)
[2023-02-05 09:01] VITALS: PULSE 90; RESP 18; O2SAT 97
[2023-02-05 09:06] VITALS: PULSE 95
== END 2023-02-05 08:35 | disposition home or self-care (01) ==
LOC: RT 08:38
PROVIDERS: PCP Nurse Practitioner; Visit Provider Internal Medicine Pulmonary Disease
DX: R06.02 Shortness of breath (principal); F17.210 Nicotine dependence, cigarettes, uncomplicated; R94.2 Abnormal results of pulmonary function studies
CPT/HCPCS: 94060; 94618; 94726; 94729; J7613

== ENCOUNTER → 2023-04-04 10:27 | Outpatient (BNVA) | payer OTHER, SELFPAY | PROVIDERS: PCP Nurse Practitioner; Visit Provider Internal Medicine Pulmonary Disease | DX: J44.9 Chronic obstructive pulmonary disease, unspecified (principal); R91.1 Solitary pulmonary nodule; G47.33 Obstructive sleep apnea (adult) (pediatric); F17.210 Nicotine dependence, cigarettes, uncomplicated; Z99.89 Dependence on other enabling machines and devices | CPT/HCPCS: 99214 ==

== ENCOUNTER → 2023-09-24 10:47 | Outpatient (BNVA) | payer OTHER, SELFPAY | PROVIDERS: PCP Nurse Practitioner; Visit Provider Internal Medicine Pulmonary Disease | DX: J44.9 Chronic obstructive pulmonary disease, unspecified (principal); R91.1 Solitary pulmonary nodule; G47.33 Obstructive sleep apnea (adult) (pediatric); Z72.0 Tobacco use | CPT/HCPCS: 99214 ==

== ENCOUNTER 2024-01-13 13:27 | Outpatient (CLI) | payer OTHER, SELFPAY ==
--- NOTE | 2024-01-13 14:15 | CT_ITS ---
WS: [id number] LDCT LUNG CANCER SCREENING TECHNIQUE: Noncontrast CT of the chest with coronal and sagittal reformatted images. CLINICAL INFORMATION: Cancer Screen COMPARISON: Outside CT lung screening 01/09/[address] chest 04/24/2021. No prior reports available. DLP: 94.12 mGy.cm DIvol: Mean CTDIvol: 2.20 (mGy) All CT scans at [facility] use at least one of these dose optimization techniques: automat ed exposure control; mA and/or kV adjustment per patient size (includes targeted exams where dose is matched to clinical indication); or iterative reconstruction. FINDINGS: Moderate chronic emphysematous changes. Noncalcified nodule RIGHT upper lobe laterally dillon uring 5 mm. This appears new since 2020. Tiny noncalcified nodule RIGHT lower lobe. Few tiny noncalci fied nodules LEFT upper lobe. Subsegmental atelectasis in the lingula. Aortic calcification. Normal caliber thoracic aorta. Coronary calcification. No mediastinal or hilar lymphadenopathy. No axillary lymphadenopathy. Small esophageal hiatal hernia. Splenic artery calcification. Adrenal glands are normal. Low-attenuat ion lesion in the dome of the liver likely hepatic cyst measuring 9 mm. This is stable since the outs helio study. Mild thoracic curve. Mild thoracic kyphosis. CT/CT lung screening [id number] IMPRESSION: LUNG-RADS: 2-Benign Appearance or Behavior FOLLOW UP: 12 Month: Continue annual screening with LDCT
== END 2024-01-13 13:28 | disposition home or self-care (01) ==
LOC: RAD 13:28
PROVIDERS: PCP Nurse Practitioner; Visit Provider Internal Medicine Pulmonary Disease
DX: F17.210 Nicotine dependence, cigarettes, uncomplicated (principal); R91.8 Other nonspecific abnormal finding of lung field; I70.0 Atherosclerosis of aorta; K44.9 Diaphragmatic hernia without obstruction or gangrene
CPT/HCPCS: 71271

== ENCOUNTER → 2025-01-31 12:10 | Outpatient (BNVA) | payer OTHER, SELFPAY | PROVIDERS: PCP Nurse Practitioner; Visit Provider Dermatology | DX: H00.011 Hordeolum externum right upper eyelid (principal); L82.1 Other seborrheic keratosis; L57.8 Other skin changes due to chronic exposure to nonionizing radiation; D69.2 Other nonthrombocytopenic purpura; L72.0 Epidermal cyst; L57.0 Actinic keratosis | CPT/HCPCS: 10060; 17000; 99213 ==

== ENCOUNTER → 2025-04-07 13:00 | Outpatient (BNVA) | payer OTHER, SELFPAY | PROVIDERS: PCP Nurse Practitioner; Visit Provider Internal Medicine | DX: I73.9 Peripheral vascular disease, unspecified (principal); Z72.0 Tobacco use; I10 Essential (primary) hypertension | CPT/HCPCS: 99214 ==